=== PATIENT | female | born 1995 | race African-American/Black ===

== ENCOUNTER 2018-06-09 09:36 | Inpatient (IN) ==
[2018-06-09] MEDS ORDERED: LACTATED RINGER'S 1,000 ML IV PRN ×3 (09:55→18:04)
[2018-06-09] MEDS ORDERED: OXYTOCIN 30 UNITS/500 ML BAG IV PRN ×3 (09:55→20:00)
[2018-06-09] MEDS: LACTATED RINGER'S 1,000 ML IV SCH ×2 (10:12→12:47)
--- NOTE | 2018-06-09 10:14 | History & Physical Report ---
Date of Service June 09, 2018 Assessment & Plan (1) 39 weeks gestation of : Savanna Mir is a 22 y/o, , [place] 39.1 weeks with EDC of 06/15/18 via LMP, O+, Ab-, Rubella immune, VDRL unreactive, G/C-, GBS-. - admitted for L&D management, anticipate , epidural for pain management. History of Present Illness Chief Complaint: Labor Primary Care Provider: NO PCP Savanna Mir is a 22 y/o, , GA 39.1 weeks with EDC of 06/15/18 via LMP, O+, Ab-, Rubella immune, VDRL unreactive, G/C-, GBS-. She states contractions started last night and have been persistent/frequent and she was very uncomfortable. She denies leakage of fluid from vagina/rupture of membranes or vaginal bleeding. She feels baby moving. She reports that she hasn't slept since onset of contractions which is causing her to be irritable. She reported to office this morning for cervical check. She saw Dr. Seymour who noted significant cervical changes 4cm/100%/-1. Patient was then sent here to L&D for expected . She reports her pain management plan is for epidural analgesia. Yesterday, when seen in office cervical exam noted to be 1cm/70%/-1. Otherwise, she reports no recent illness. Allergies Allergy/AdvReac Type Severity Reaction Status Date / Time Penicillins Allergy Intermediate Hives Verified 06/09/18 10:08 Home Medications Home Medications Medication Instructions Recorded Confirmed Type albuterol sulfate 06/09/18 History vit-iron fum-folic ac 1 tab PO DAILY 06/09/18 06/09/18 History [ Vitamin] Patient History Medical History Asthma Social History Smoking Status: Never smoker Hx Alcohol Use: No Hx Substance Use: No OB History [employer] History no history of abnormal paps no history of STDs Review of Systems All systems reviewed & are unremarkable except as noted in HPI & below Physical Exam Vital Signs (Past 24 Hours): Last Vital Signs Temp 36.9 C 06/09/18 09:49 Pulse 89 06/09/18 09:49 Resp 22 06/09/18 09:49 BP 131/74 06/09/18 09:49 Constitutional: WD/WN, vitals as above cooperative Eyes: + anicteric sclerae and EOM intact bilaterally Neck: normal visual inspection and trachea midline Respiratory: normal respiratory effort, lungs clear to auscultation Cardiovascular: Rate/Rhythm: regular rate and regular rhythm Heart Sounds: no murmur Gastrointestinal (Abdomen): gravid uterus consistent with dates Musculoskeletal: Head/Neck/Chest: normocephalic and head atraumatic Skin: no rashes, warm and dry Neurologic: moves all extremities and awake Psychiatric: A+Ox3, euthymic affect Genitourinary: OB Exam Monitor Tracing: + external FHT monitor used, + external uterine monitor used and + category I Code Status & VTE Plan Code Status Full Monitoring External Monitor Baseline w/moderate variability, accels present, no decels Tocodynamometer moderate regular contractions Supervising Physician Co-Signing Physician Notes Resident Physician Supervision Note: I interviewed and examined the patient. Discussed with Dr. Ji Lopez and agree with findings and plan as documented in the note. Any exceptions or clarifications are listed here: [None] Documented By: Janeth Chase MD, FACOG
[2018-06-09] MEDS ORDERED: PATIENT'S ALLERGY INFO NEEDS ENTERED SCH (10:15)
[2018-06-09 10:22] LABS: Hematocrit (blood only) 39.8 % (37-47); Mean Corpuscular Volume 88.8 fL (80-100); Mean Platelet Volume 10.8 fL (7.4-10.4); Platelet Count 160 K/uL (130-400); RDW Coefficient of Variation 12.8 % (11.5-14.5); RDW Standard Deviation 41.5 fL (36.4-46.3); Red Blood Count 4.48 M/uL (4.2-5.4); White Blood Count 15.52 K/uL (4.8-10.8)
[2018-06-09 10:30] LABS: Mean Corpuscular Hgb Conc 35.2 g/dL (32-36)
[2018-06-09] MEDS ORDERED: ePHEDrine sulfate 50 MG/ML AMP ONE (11:05)
[2018-06-09] MEDS ORDERED: fentaNYL citrate 100 MCG/2 ML VIAL ONE (11:05)
[2018-06-09] MEDS ORDERED: BUPIVACAINE 0.25% 30 ML VIAL ONE (11:05)
[2018-06-09] MEDS ORDERED: fentaNYL 2MCG/ML ROPIV 1.25MG/ML 100 ML BAG EPI ONE (11:06)
--- NOTE | 2018-06-09 11:28 | Anesthesiology Consultation ---
Date of Service June 09, 2018 Assessment & Plan (1) Encounter for pre-operative examination: (2) Term : Chart Review Chart Review: Acceptable Risk for Surgery and Acceptable Risk for Labor Epidural History Height/Weight Height: 4 ft 9 in Weight: 62.064 kg Allergies Allergy/AdvReac Type Severity Reaction Status Date / Time Penicillins Allergy Intermediate Hives Verified 06/09/18 10:08 Medications Home Medications Medication Instructions Recorded Confirmed Last Taken vit-iron fum-folic ac 1 tab PO DAILY 06/09/18 06/09/18 06/08/18 20:00 [ Vitamin] Active Medications Generic Name Dose Route Start Last Admin Trade Name Freq PRN Reason Stop Dose Admin Lactated Ringer's 1,000 mls @ 125 mls/hr 06/09/18 10:00 06/09/18 10:40 Lr IV 06/11/18 09:59 125 mls/hr .Q8H KEVIN Infusion Past Medical History Medical History Asthma Social History Smoking Status: Never smoker Do You Dip or Chew Tobacco: No Hx Alcohol Use: No Hx Substance Use: No Physical Exam Vital Signs Last Vital Signs Temp 36.9 C 06/09/18 09:49 Pulse 89 06/09/18 09:49 Resp 22 06/09/18 09:49 BP 131/74 06/09/18 09:49 Testing Laboratory Results 06/09/18 10:08
[2018-06-09] MEDS ORDERED: NALOXONE HCL 1 MG in SODIUM CHLORIDE 0.9% 1000ML 1,000 ML IV PRN (11:57)
[2018-06-09] MEDS ORDERED: ePHEDrine sulfate 50 MG/ML AMP IV PRN (11:57)
[2018-06-09] MEDS ORDERED: NALOXONE HCL 0.4 MG/1 ML VIAL/CARP IV PRN (11:57)
[2018-06-09] MEDS: fentaNYL 2MCG/ML ROPIV 1.25MG/ML 100 ML BAG EPI PRN ×2 (15:01→19:25)
--- NOTE | 2018-06-09 18:09 | Obstetrical Progress Note ---
Date of Service June 09, 2018 Subjective FHT's caegory 2 with mild variables, IUPC was placed earlier to assess contraction strength as cervical dilation had arrested at 5 cm and 0 station. IUPC contractions initially were adequate but now are not as consistent as only every 1 in 3 contractions now appear to be strong enough. cervical exam:7-8cm/100 with thickened lip on right/+1 station A&P will start pitocin to make contractions more consistent and to help with pushing stage/ Physical Exam Vital Signs (Past 24 Hours): Last Vital Signs Temp 37.2 C 06/09/18 17:00 Pulse 100 H 06/09/18 18:02 Resp 16 06/09/18 17:30 BP 110/60 06/09/18 17:59 Pulse Ox 100 06/09/18 18:02
[2018-06-09] MEDS ORDERED: BISACODYL 10 MG SUPP PR PRN (20:00)
[2018-06-09] MEDS ORDERED: HYDROCORTISONE ACETATE 25 MG SUPP PR PRN (20:00)
[2018-06-09] MEDS ORDERED: SUPERCREAM 0.870% 15 GM JAR EXT PRN (20:00)
[2018-06-09] MEDS ORDERED: BENZOCAINE 20% AER SPR 82.5 GM CAN EXT PRN (20:00)
[2018-06-09] MEDS ORDERED: ACETAMINOPHEN 325 MG TAB PO PRN (20:00)
[2018-06-09] MEDS ORDERED: OXYCODONE/ACETAMINOPHEN 5mg/325mg TAB PO PRN (20:00)
[2018-06-09] MEDS ORDERED: DIPHTHERIA/TETANUS/PERTUSSIS 0.5 ML SYR/VIAL IM ONE (20:00)
--- NOTE | 2018-06-09 20:32 | Anesthesia Procedure Note ---
Date of Service June 09, 2018 Anesthesia Post Epidural Note Vital Signs Vital Signs: Temp Pulse Resp BP Pulse Ox 37.5 C 75 18 131/79 100 06/09/18 18:30 06/09/18 20:17 06/09/18 19:00 06/09/18 20:17 06/09/18 19:57 Pain Intensity Abdomen: Pain Intensity: 6 Notes Mental Status: alert / awake / arousable and participated in evaluation Nausea / Vomiting: adequately controlled Pain: adequately controlled Airway Patency, RR, SpO2: stable & adequate BP & HR: stable & adequate Hydration State: stable & adequate Neuraxial Anesthesia: was administered and sensory block is resolving Anesthetic Complications: no major complications apparent Epidural: Removed without complications and With tip intact
[2018-06-09] MEDS: IBUPROFEN 600 MG TAB PO PRN (21:41)
--- NOTE | 2018-06-10 03:07 | Delivery Summary ---
DATE OF OPERATION: 06/09/2018 The patient is a 22-year-old G1, P0 -[place]ian female who presented at 39-1/7 weeks in active labor. She received effective epidural analgesia and membranes were ruptured for small amount of clear fluid. Contraction pattern then became somewhat more irregular and Pitocin augmentation was begun after inserting an IUPC. She went to full dilation and pushed effectively over intact perineum for delivery of a viable female infant. Mouth and nasopharynx were suctioned on the perineum. The rest of the delivered easily and was placed on the mother's abdomen for further attention and drying. The infant had a spontaneous crying and was moving all 4 limbs. The cord was then clamped and cut after 30 seconds of life. The placenta was expressed intact with a 3-vessel cord after getting cord blood. A first-degree left labial laceration was repaired with 3-0 chromic in the usual fashion. Estimated blood loss was 300 mL. Mother and infant were doing well after delivery. I attest to the content of the Intraoperative Record and any orders documented therein. Any exception s are noted below.
--- NOTE | 2018-06-10 07:04 | Obstetrical Progress Note ---
Date of Service <Ji Lopez - Last Filed: 06/10/18 07:27> June 10, 2018 Assessment & Plan <Ji Lopez - Last Filed: 06/10/18 07:27> (1) Spontaneous vaginal delivery: Savanna Mir is a 22 y/o, , at GA 39.1 weeks, O+, Ab-, Rubella immune, VDRL unreactive, G/C-, GBS-. - continue routine post- care, encourage , encourage ambulation. (2) 39 weeks gestation of : Subjective <Ji Lopez - Last Filed: 06/10/18 07:27> Ambulation: ambulating normally Voiding: no voiding problems Passing Gas:: Yes Diet Tolerance:: regular diet Lochia:: Small Feeding Type:: breast feeding Savanna states she is doing well this morning, no acute events overnight. She denies fever, chills, chest pain, shortness of breath, nausea, vomiting. Physical Exam <Ji Lopez - Last Filed: 06/10/18 07:27> Vital Signs (Past 24 Hours) Last Vital Signs Temp 36.6 C 06/10/18 04:15 Pulse 72 06/10/18 04:15 Resp 18 06/10/18 04:15 BP 101/62 06/10/18 04:15 Pulse Ox 100 06/09/18 19:57 Constitutional WD/WN, vitals as above cooperative Eyes + anicteric sclerae and EOM intact bilaterally Neck normal visual inspection and trachea midline Respiratory normal respiratory effort, lungs clear to auscultation Cardiovascular Rate/Rhythm: regular rate and regular rhythm Heart Sounds: no murmur Gastrointestinal (Abdomen) Percussion/Palpation: abdomen nontender uterine fundus is non-tender, firm, 2cm inferior to umbilicus Musculoskeletal Head/Neck/Chest: normocephalic and head atraumatic Skin no rashes, warm and dry Neurologic moves all extremities and awake Psychiatric A+Ox3, euthymic affect Results & Data <Ji Lopez DO Cardenas Last Filed: 06/10/18 07:27> Laboratory Results Laboratory Results - last 24 hr 06/09/18 06/10/18 10:08 06:34 WBC 15.52 H 20.94 H RBC 4.48 3.89 L Hgb 14.0 12.1 Hct 39.8 34.9 L MCV 88.8 89.7 MCH 31.3 31.1 MCHC 35.2 34.7 RDW Std Deviation 41.5 42.4 RDW Coeff of Carmen 12.8 13.0 Plt Count 160 133 MPV 10.8 H 10.7 H Medications Administered Lactated Ringer's (Lr) 1,000 mls @ 125 mls/hr IV .Q8H KEVIN Stop: 06/11/18 09:59 Last Infusion: 06/09/18 19:25 Dose: 125 mls/hr Documented by: [id number] Infusion: 06/09/18 19:13 Dose: 999 mls/hr Documented by: [id number] Admin: 06/09/18 12:47 Dose: 125 mls/hr Documented by: [id number] Infusion: 06/09/18 12:47 Dose: 999 mls/hr Documented by: [id number] Infusion: 06/09/18 12:35 Dose: 999 mls/hr Documented by: [id number] Infusion: 06/09/18 10:40 Dose: 125 mls/hr Documented by: [id number] Admin: 06/09/18 10:12 Dose: 999 mls/hr Documented by: [id number] Oxytocin (Pitocin) 30 units in 500 mls @ 333 mls/hr IV .Q1H31M PRN; Protocol PRN Reason: Labor Induction/Augmentation Stop: 06/11/18 18:03 Last Titration: 06/09/18 21:15 Dose: 0 units/hr, 0 mls/hr Documented by: [id number] Titration: 06/09/18 19:44 Dose: 19.98 units/hr, 333 mls/hr Documented by: [id number] Titration: 06/09/18 19:13 Dose: 0 units/hr, 0 mls/hr Documented by: [id number] Admin: 06/09/18 18:19 Dose: 0.06 units/hr, 1 mls/hr Documented by: [id number] Cosigned by: [id number] Ibuprofen (Motrin) 600 mg PO Q4H PRN PRN Reason: Pain/KELLY/Cramping/Fever Stop: 07/09/18 19:59 Last Admin: 06/09/18 21:41 Dose: 600 mg Documented by: [id number] Ropivacaine (Epidural (L&D)) 100 ml EPI PRN PRN; Protocol PRN Reason: Pain R/T Labor Stop: 06/10/18 11:56 Last Admin: 06/09/18 19:25 Dose: 100 ml Documented by: [id number] Cosigned by: [id number] Admin: 06/09/18 15:01 Dose: 10 ml Documented by: [id number] Cosigned by: [id number] <Janeth Chase MD, FACOG - Last Filed: 06/10/18 07:38> Co-Signing Physician Notes Resident Physician Supervision Note: I interviewed and examined the patient. Discussed with Dr. Selvin Lopez and agree with findings and plan as documented in the note. Any exceptions or clarifications are listed here: [None] Documented By: Janeth Chase MD, FACOG
[2018-06-10 07:08] LABS: Hematocrit (blood only) 34.9 % (37-47); Hemoglobin 12.1 g/dL (12.0-16.0); Mean Corpuscular Hgb Conc 34.7 g/dL (32-36); Mean Corpuscular Volume 89.7 fL (80-100); Mean Platelet Volume 10.7 fL (7.4-10.4); Platelet Count 133 K/uL (130-400); RDW Standard Deviation 42.4 fL (36.4-46.3); Red Blood Count 3.89 M/uL (4.2-5.4); White Blood Count 20.94 K/uL (4.8-10.8)
[2018-06-10] MEDS: DOCUSATE SODIUM 100 MG CAP PO SCH ×2 (09:04→20:09)
[2018-06-10] MEDS: IBUPROFEN 600 MG TAB PO PRN ×2 (09:04→20:09)
[2018-06-10] MEDS: PRENATAL VITAMIN 1 TAB PO SCH (09:04)
[2018-06-10] MEDS ORDERED: BISACODYL 5 MG TABEC PO SCH (20:00)
[2018-06-11 06:23] LABS: Hematocrit (blood only) 40.2 % (37-47); Hemoglobin 13.7 g/dL (12.0-16.0)
--- NOTE | 2018-06-11 07:00 | Obstetrical Progress Note ---
Date of Service <Ji Lopez - Last Filed: 06/11/18 07:35> June 11, 2018 Assessment & Plan <Ji Lopez - Last Filed: 06/11/18 07:35> (1) Spontaneous vaginal delivery: Savanna Mir is a 22 y/o, , at GA 39.1 weeks, O+, Ab-, Rubella immune, VDRL unreactive, G/C-, GBS-. - continue routine post- care, encourage , encourage ambulation, until discharge home today. - discharge instructions reviewed at bedside. (2) 39 weeks gestation of : Savanna Mir is a 22 y/o, , GA 39.1 weeks with EDC of 06/15/18 via LMP, O+, Ab-, Rubella immune, VDRL unreactive, G/C-, GBS-. . Subjective <Ji Lopez - Last Filed: 06/11/18 07:35> Ambulation: ambulating normally Voiding: no voiding problems Passing Gas:: Yes Diet Tolerance:: regular diet Lochia:: Small Feeding Type:: breast feeding Savanna states she is doing well this morning, no acute events overnight. She denies chest pain, shortness of breath, fever, chills, headache, nausea, vomiting. She states she is ready for discharge home today. Physical Exam <Ji Lopez DO Cardenas Last Filed: 06/11/18 07:35> Vital Signs (Past 24 Hours) Last Vital Signs Temp 36.9 C 06/10/18 23:45 Pulse 71 06/10/18 23:45 Resp 16 06/10/18 23:45 BP 121/65 06/10/18 23:45 Pulse Ox 95 06/10/18 23:45 Constitutional WD/WN, vitals as above cooperative Eyes + anicteric sclerae and EOM intact bilaterally Neck normal visual inspection and trachea midline Respiratory normal respiratory effort, lungs clear to auscultation Cardiovascular Rate/Rhythm: regular rate and regular rhythm Heart Sounds: no murmur Gastrointestinal (Abdomen) Percussion/Palpation: abdomen nontender uterine fundus is firm, non-tender, 3-cm inferior to umbilicus Musculoskeletal Head/Neck/Chest: normocephalic and head atraumatic Skin no rashes, warm and dry Neurologic moves all extremities and awake Psychiatric A+Ox3, euthymic affect Results & Data <Ji Lopez DO - Last Filed: 06/11/18 07:35> Laboratory Results Laboratory Results - last 24 hr 06/11/18 06:05 Hgb 13.7 Hct 40.2 Medications Administered Benzocaine (Dermoplast Pain Relieving [place]) 1 appln EXT PRN PRN PRN Reason: Perineal Discomfort Stop: 07/09/18 19:59 Last Admin: 06/10/18 20:15 Dose: 82.5 appln Documented by: [id number] Docusate Sodium (Colace) 100 mg PO BID KEVIN Stop: 07/09/18 20:59 Last Admin: 06/10/18 20:09 Dose: 100 mg Documented by: [id number] Admin: 06/10/18 09:04 Dose: 100 mg Documented by: [id number] Lactated Ringer's (Lr) 1,000 mls @ 125 mls/hr IV .Q8H KEVIN Stop: 06/11/18 09:59 Last Infusion: 06/09/18 19:25 Dose: 125 mls/hr Documented by: [id number] Infusion: 06/09/18 19:13 Dose: 999 mls/hr Documented by: [id number] Admin: 06/09/18 12:47 Dose: 125 mls/hr Documented by: [id number] Infusion: 06/09/18 12:47 Dose: 999 mls/hr Documented by: [id number] Infusion: 06/09/18 12:35 Dose: 999 mls/hr Documented by: [id number] Infusion: 06/09/18 10:40 Dose: 125 mls/hr Documented by: [id number] Admin: 06/09/18 10:12 Dose: 999 mls/hr Documented by: [id number] Oxytocin (Pitocin) 30 units in 500 mls @ 333 mls/hr IV .Q1H31M PRN; Protocol PRN Reason: Labor Induction/Augmentation Stop: 06/11/18 18:03 Last Titration: 06/09/18 21:15 Dose: 0 units/hr, 0 mls/hr Documented by: [id number] Titration: 06/09/18 19:44 Dose: 19.98 units/hr, 333 mls/hr Documented by: [id number] Titration: 06/09/18 19:13 Dose: 0 units/hr, 0 mls/hr Documented by: [id number] Admin: 06/09/18 18:19 Dose: 0.06 units/hr, 1 mls/hr Documented by: [id number] Cosigned by: [id number] Ibuprofen (Motrin) 600 mg PO Q4H PRN PRN Reason: Pain/KELLY/Cramping/Fever Stop: 07/09/18 19:59 Last Admin: 06/10/18 20:09 Dose: 600 mg Documented by: [id number] Admin: 06/10/18 09:04 Dose: 600 mg Documented by: [id number] Admin: 06/09/18 21:41 Dose: 600 mg Documented by: [id number] Prenat Multivit/Barron/Iron/Folic Ac ( Vitamin) 1 tab PO QAM KEVIN Stop: 07/10/18 08:59 Last Admin: 06/10/18 09:04 Dose: 1 tab Documented by: [id number] <Reina Seymour, - Last Filed: 06/11/18 07:30> Co-Signing Physician Notes I have seen/examined patient. I have read above note performed by resident and I agree with above. Any changes/additions are as follows: PPD#2 doing well. DC to home today. Reina Seymour DO [facility]
[2018-06-11] MEDS: PRENATAL VITAMIN 1 TAB PO SCH (08:12)
[2018-06-11] MEDS: DOCUSATE SODIUM 100 MG CAP PO SCH (08:12)
== END 2018-06-11 15:15 | disposition home or self-care (01) | DRG 807 ==
LOC: 4S1 09:36 → 4S2 22:20